=== PATIENT | male | born 1980 | race Caucasian/White ===

== ENCOUNTER 2018-01-04 08:26 | Emergency (ER) | payer MEDICAID ==
[~2018-01-04] VITALS: Ht 180.3 cm; Wt 100.0 kg
[2018-01-04 08:32] VITALS: Ht 180.3 cm; Wt 100.0 kg
[2018-01-04] MEDS ORDERED: SEROQUEL300 MG PO ×2 (08:33→09:54)
[2018-01-04] MEDS ORDERED: BUPROPION HCL100 MG PO (08:34)
[2018-01-04] MEDS ORDERED: ZOCOR20 MG PO (08:34)
[2018-01-04] MEDS ORDERED: OMEPRAZOLE40 MG PO (08:34)
[2018-01-04] MEDS ORDERED: DESERYL100 MG PO ×2 (08:35→09:54)
[2018-01-04] MEDS ORDERED: HYDROCHLOROTHIA25 MG PO (08:35)
[2018-01-04] MEDS ORDERED: MOBIC7.5 MG PO (08:35)
[2018-01-04] MEDS ORDERED: POTASSIUM CHLOR8 ME1 PO (08:36)
[2018-01-04] MEDS ORDERED: COMBIVENT RESPIM4 GM INH (08:36)
[2018-01-04] MEDS ORDERED: VENTOLIN HFA18 GM INH (08:36)
[2018-01-04 08:56] LABS: BASOPHILS 0.5 % (0-2); EOSINOPHILS 2.3 % (0-7); HEMATOCRIT 43.7 % (42.0-54.0); HEMOGLOBIN 15.1 g/dL (13.5-17.5); IMMATURE GRANULOCYTES 0.3 % (0-5); LYMPHOCYTES 26.8 % (15-50); MCH 31.4 pg (26.0-34.0); MCHC 34.6 g/dL (31.0-37.0); MCV 90.9 fL (80.0-100.0); MEAN PLATELET VOLUME 8.4 fL (7.4-10.4); MONOCYTES 10.7 % (2-11); NEUTROPHILS 59.4 % (40-80); PLATELET COUNT 215 10x3/uL (130-400); RBC 4.81 10x6/uL (4.20-6.10); WBC 7.3 10x3/uL (4.8-10.8)
[2018-01-04 09:04] LABS: APTT 26.5 SECONDS (22.8-39.4); INR 0.91 (0.85-1.17); PROTIME 11.9 SECONDS (11.6-15.0)
[2018-01-04 09:10] LABS: ALBUMIN 3.8 g/dL (3.4-5.0); ALKALINE PHOSPHATASE 74 U/L (46-116); ALT (SGPT) 33 U/L (10-68); BILIRUBIN - TOTAL 0.38 mg/dL (0.2-1.3); CALC OSMOLALITY 272 mosm/kg (275-300); CALCIUM 8.1 mg/dL (8.5-10.1); CARBON DIOXIDE 26.9 mmol/L (21.0-32.0); CHLORIDE - SERUM 104 mmol/L (98-107); GLUCOSE 89 mg/dL (74-106); POTASSIUM - SERUM 3.9 mmol/L (3.5-5.1); PROTEIN - SERUM 7.3 g/dL (6.4-8.2); SODIUM 137 mmol/L (136-145); UREA NITROGEN 12 mg/dL (7-18); eGFR NON AFRICAN AMERICAN 88 mL/min (90-120)
[2018-01-04 09:21] LABS: CKMB 0.9 U/L (0.0-3.6); CREATINE KINASE 67 UL (21-232)
[2018-01-04 09:25] LABS: TROPONIN-I < 0.017 ng/mL (0.000-0.060)
[2018-01-04 10:19] VITALS: BP 122/86
== END 2018-01-04 10:20 | disposition home or self-care (01) ==
LOC: D.ER 08:26
PROVIDERS: Family Medicine
DX: R07.9 Chest pain, unspecified (principal); Z86.59 Personal history of other mental and behavioral disorders; I10 Essential (primary) hypertension; K21.9 Gastro-esophageal reflux disease without esophagitis

== ENCOUNTER 2018-03-03 08:48 | Emergency (ER) | payer MEDICAID ==
[~2018-03-03] VITALS: Ht 180.3 cm; Wt 108.2 kg
[~2018-03-03 08:48] MED LIST: BUPROPION HCL100 MG PO; COMBIVENT RESPIM4 GM INH; DESERYL100 MG PO; HYDROCHLOROTHIA25 MG PO; MOBIC7.5 MG PO; OMEPRAZOLE40 MG PO; POTASSIUM CHLOR8 ME1 PO; SEROQUEL300 MG PO; VENTOLIN HFA18 GM INH; ZOCOR20 MG PO
[2018-03-03 09:06] VITALS: BP 151/87; Ht 180.3 cm; Wt 108.2 kg
[2018-03-03] MEDS ORDERED: BUPROPION HCL200 M1 PO (10:31)
[2018-03-03] MEDS ORDERED: TRAZODONE HCL100 MG PO (10:31)
[2018-03-03] MEDS ORDERED: SEROQUEL300 MG PO (10:31)
== END 2018-03-03 10:37 | disposition home or self-care (01) ==
LOC: D.ER 08:48
DX: F31.9 Bipolar disorder, unspecified (principal); I10 Essential (primary) hypertension; J44.9 Chronic obstructive pulmonary disease, unspecified; K21.9 Gastro-esophageal reflux disease without esophagitis; F17.200 Nicotine dependence, unspecified, uncomplicated

== ENCOUNTER 2018-03-11 12:39 | Emergency (ER) | payer MEDICAID ==
[~2018-03-11] VITALS: Ht 180.3 cm; Wt 102.3 kg
[~2018-03-11 12:39] MED LIST changes: +BUPROPION HCL200 M1 PO; +TRAZODONE HCL100 MG PO
[2018-03-11 13:00] VITALS: Ht 180.3 cm; Wt 102.3 kg
[2018-03-11] MEDS ORDERED: ROBAXIN500 MG PO (13:03)
[2018-03-11] MEDS ORDERED: VOLTAREN75 MG PO (15:07)
[2018-03-11] MEDS ORDERED: BACLOFEN20 M1 PO (15:07)
[2018-03-11 15:45] VITALS: BP 124/65
== END 2018-03-11 15:45 | disposition home or self-care (01) ==
LOC: D.ER 12:39
DX: M25.551 Pain in right hip (principal); I10 Essential (primary) hypertension; J44.9 Chronic obstructive pulmonary disease, unspecified; K21.9 Gastro-esophageal reflux disease without esophagitis; F17.200 Nicotine dependence, unspecified, uncomplicated

== ENCOUNTER → 2018-05-27 10:51 | Outpatient (CLI) | payer MEDICAID ==
[2018-03-11 13:00] VITALS: BMI 31.4
[~2018-05-27 10:51] MED LIST changes: +BACLOFEN20 M1 PO; +FAMOTIDINE10 MG PO; +PREDNISONE10 MG PO; +ROBAXIN500 MG PO; +VOLTAREN75 MG PO
== END | disposition home or self-care (01) ==
LOC: D.RT 10:51
DX: Z02.71 Encounter for disability determination (principal)

== ENCOUNTER 2018-06-06 13:52 | Emergency (ER) | payer MEDICAID ==
[~2018-06-06] VITALS: Ht 180.3 cm; Wt 111.4 kg
[~2018-06-06 13:52] MED LIST changes: -FAMOTIDINE10 MG PO; -PREDNISONE10 MG PO
[2018-06-06 14:00] VITALS: Ht 180.3 cm; Wt 111.4 kg
[2018-06-06] MEDS ORDERED: FAMOTIDINE10 MG PO (16:26)
[2018-06-06] MEDS ORDERED: PREDNISONE10 MG PO (16:26)
[2018-06-06 16:41] VITALS: BP 151/80
== END 2018-06-06 16:41 | disposition home or self-care (01) ==
LOC: D.ER 13:52
DX: L25.9 Unspecified contact dermatitis, unspecified cause (principal); F17.200 Nicotine dependence, unspecified, uncomplicated

== ENCOUNTER 2019-04-21 09:57 | Emergency (ER) | payer MEDICAID ==
[~2019-04-21] VITALS: Ht 180.3 cm; Wt 122.7 kg
[~2019-04-21 09:57] MED LIST changes: +FAMOTIDINE10 MG PO; +PREDNISONE10 MG PO
[2019-04-21 10:19] VITALS: Ht 180.3 cm; Wt 122.7 kg
[2019-04-21 10:54] LABS: BASOPHILS 0.2 % (0-2); EOSINOPHILS 0.8 % (0-7); HEMOGLOBIN 14.2 g/dL (13.5-17.5); IMMATURE GRANULOCYTES 1.9 % (0-5); MCH 31.7 pg (26.0-34.0); MCHC 33.8 g/dL (31.0-37.0); MCV 93.8 fL (80.0-100.0); MEAN PLATELET VOLUME 8.4 fL (7.4-10.4); MONOCYTES 8.8 % (2-11); NEUTROPHILS 67.3 % (40-80); PLATELET COUNT 321 10x3/uL (130-400); RBC 4.48 10x6/uL (4.20-6.10); RDW 13.7 % (11.5-14.5); WBC 13.3 10x3/uL (4.8-10.8)
[2019-04-21 10:57] LABS: CALC OSMOLALITY 276 mosm/kg (275-300); CARBON DIOXIDE 27.1 mmol/L (21.0-32.0); CHLORIDE - SERUM 106 mmol/L (98-107); CREATININE - SERUM 1.1 mg/dL (0.6-1.3); GLUCOSE 83 mg/dL (74-106); SODIUM 140 mmol/L (136-145); UREA NITROGEN 11 mg/dL (7-18); eGFR NON AFRICAN AMERICAN 79 mL/min (90-120)
[2019-04-21 11:06] LABS: ALBUMIN 3.5 g/dL (3.4-5.0); ALKALINE PHOSPHATASE 67 U/L (46-116); ALT (SGPT) 40 U/L (10-68); AMYLASE - SERUM 39 U/L (25-115); BILIRUBIN - TOTAL 0.18 mg/dL (0.2-1.3); LIPASE 100 U/L (73-393); PROTEIN - SERUM 6.8 g/dL (6.4-8.2); TROPONIN-I < 0.017 ng/mL (0.000-0.060)
[2019-04-21 11:48] LABS: APPEARANCE CLEAR (CLEAR); BACTERIA FEW /hpf (NEGATIVE); BILIRUBIN NEGATIVE (NEGATIVE); COLOR YELLOW (YELLOW); EPITHELIAL CELLS RARE /hpf (0-5); GLUCOSE NEGATIVE (NEGATIVE); KETONE NEGATIVE (NEGATIVE); NITRITE NEGATIVE (NEGATIVE); PROTEIN TRACE mg/dL (NEGATIVE); RED CELLS - URINE OCC /hpf (0-5); SPECIFIC GRAVITY 1.015 (1.005-1.020); UROBILINOGEN NORMAL (NORMAL); WHITE CELLS - URINE NSEEN /hpf (NEGATIVE)
[2019-04-21] MEDS ORDERED: LOMOTIL 2.5-0.1 EAC1 PO (12:45)
[2019-04-21] MEDS ORDERED: ZOFRAN ODT4 MG/UDTAB PO (12:45)
[2019-04-21] MEDS ORDERED: CIPRO500 MG PO (12:46)
[2019-04-21] MEDS ORDERED: FLAGYL500 MG PO (12:46)
[2019-04-21 13:14] VITALS: BP 153/99
== END 2019-04-21 13:15 | disposition home or self-care (01) ==
LOC: D.ER 09:57
PROVIDERS: Family Medicine
DX: K52.9 Noninfective gastroenteritis and colitis, unspecified (principal); I10 Essential (primary) hypertension; J44.9 Chronic obstructive pulmonary disease, unspecified; K21.9 Gastro-esophageal reflux disease without esophagitis; M54.9 Dorsalgia, unspecified

== ENCOUNTER 2019-05-23 12:28 | Emergency (ER) | payer MEDICAID ==
[~2019-05-23] VITALS: Ht 180.3 cm; Wt 122.7 kg
[~2019-05-23 12:28] MED LIST changes: +CIPRO500 MG PO; +FLAGYL500 MG PO; +LOMOTIL 2.5-0.1 EAC1 PO; +ZOFRAN ODT4 MG/UDTAB PO
[2019-05-23 12:34] VITALS: Ht 180.3 cm; Wt 122.7 kg
[2019-05-23] MEDS ORDERED: BUTALB-APAP-CA1 EACH PO (13:56)
[2019-05-23 15:08] VITALS: BP 121/72
== END 2019-05-23 15:08 | disposition home or self-care (01) ==
LOC: D.ER 12:28
DX: G43.909 Migraine, unspecified, not intractable, without status migrainosus (principal); I10 Essential (primary) hypertension; E78.5 Hyperlipidemia, unspecified; J44.9 Chronic obstructive pulmonary disease, unspecified; Z72.0 Tobacco use

== ENCOUNTER 2019-06-25 21:43 | Emergency (ER) | payer MEDICAID ==
[~2019-06-25] VITALS: Ht 180.3 cm; Wt 125.0 kg
[~2019-06-25 21:43] MED LIST changes: +BUTALB-APAP-CA1 EACH PO
[2019-06-25 21:47] VITALS: Ht 180.3 cm; Wt 125.0 kg
[2019-06-25] MEDS ORDERED: MUPIROCIN22 GM TOPICAL (22:21)
[2019-06-25 22:50] VITALS: BP 118/66
== END 2019-06-25 22:50 | disposition home or self-care (01) ==
LOC: D.ER 21:43
DX: S61.412A Laceration without foreign body of left hand, initial encounter (principal); I10 Essential (primary) hypertension; E78.5 Hyperlipidemia, unspecified; K21.9 Gastro-esophageal reflux disease without esophagitis; J44.9 Chronic obstructive pulmonary disease, unspecified; W26.0XXA Contact with knife, initial encounter; Y93.9 Activity, unspecified; Y92.9 Unspecified place or not applicable